=== PATIENT | female | born 1965 | race American Indian/Alaskan Native ===

== ENCOUNTER 2016-12-26 20:21 | Emergency (ER) | payer BC ==
[2016-12-26] MEDS ORDERED: TORADOL IM ONE (23:37)
--- NOTE | 2016-12-26 23:48 | Emergency Department Report ---
ED Fall HPI - General Chief Complaint: Fall Stated Complaint: FALL Time Seen by Provider: 12/26/16 23:42 Source: patient Mode of arrival: Ambulatory - History of Present Illness Initial Comments: MS VILLA SLIPPED AND FELL ON A NEWLY WAXED SURFACE WHILE AT WORK. THERE WAS NO SIGN INDICTING THAT THE FLOOR WAS SLIPPERY. SHE NOW COMPLAINS OF LEFT SHOULDER AND LEFT ELBOW PAIN. NO LOSS OF CONSCIOUSNESS. 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 denies: headache, neck pain, numbness, weakness, chest paint, shortness of breath, abdominal pain, lightheaded, vertigo, confusion - Related Data Previous Rx's Medication Instructions Recorded Last Taken Type Diazepam Tab [Valium] 2 mg PO TID PRN #10 tablet 12/27/16 Unknown Rx Ibuprofen [Motrin] 800 mg PO Q8HR PRN #20 tablet 12/27/16 Unknown Rx Allergies Allergy/AdvReac Type Severity Reaction Status Date / Time No Known Allergies Allergy Verified 12/26/16 23:37 ED Review of Systems ROS: Stated complaint: FALL Other details as noted in HPI Constitutional: denies: chills, fever Eyes: denies: eye pain, eye discharge, vision change ENT: denies: ear pain, throat pain Respiratory: denies: cough, shortness of breath, wheezing Cardiovascular: denies: chest pain, palpitations Endocrine: no symptoms reported Gastrointestinal: denies: abdominal pain, nausea, diarrhea Genitourinary: denies: urgency, dysuria, discharge Musculoskeletal: denies: back pain, joint swelling, arthralgia Skin: denies: rash, lesions Neurological: denies: headache, weakness, paresthesias Psychiatric: denies: anxiety, depression Hematological/Lymphatic: denies: easy bleeding, easy bruising ED Past Medical Hx - Past Medical History Previous Medical History?: No - Surgical History Past Surgical History?: Yes Hx Cholecystectomy: Yes Hx Appendectomy: No Additional Surgical History: x2 - Family History Family history: no significant - Social History Smoking Status: Never Smoker Substance Use Type: None - Medications Home Medications: Home Medications Medication Instructions Recorded Confirmed Last Taken Type Diazepam Tab [Valium] 2 mg PO TID PRN #10 tablet 12/27/16 Unknown Rx Ibuprofen [Motrin] 800 mg PO Q8HR PRN #20 tablet 12/27/16 Unknown Rx ED Physical Exam - General Limitations: No Limitations General appearance: alert, in no apparent distress - Head Head exam: Present: atraumatic, normocephalic, normal inspection - Eye Eye exam: Present: normal appearance. Absent: scleral icterus, conjunctival injection, periorbital swelling - Neck Neck exam: Present: normal inspection, full ROM. Absent: tenderness - Respiratory Respiratory exam: Present: normal lung sounds bilaterally. Absent: wheezes, rales, rhonchi, chest wall tenderness - Cardiovascular Cardiovascular Exam: Present: regular rate, normal rhythm, normal heart sounds - GI/Abdominal GI/Abdominal exam: Present: soft - Rectal Rectal exam: Present: deferred - Extremities Exam Extremities exam: Present: full ROM. Absent: joint swelling - Expanded Upper Extremity Exam Left General: Present: abrasion (TO LEFT ELBOW) Shoulder Exam: Present: full ROM, tenderness. Absent: swelling, abrasion, ecchymosis, deformity, crepidus, dislocation, erythema, tenderness over AC joint Upper Arm exam: Present: normal inspection, full ROM. Absent: tenderness, swelling, abrasion Elbow exam: Present: full ROM, tenderness, abrasion - Back Exam Back exam: Present: normal inspection, full ROM. Absent: tenderness, CVA tenderness (R) - Neurological Exam Neurological exam: Present: alert, oriented X3, CN II-XII intact. Absent: motor sensory deficit - Psychiatric Psychiatric exam: Present: normal affect, normal mood ED Course Vital Signs 12/26/16 12/27/16 23:29 00:09 Temperature 98.1 F Pulse Rate 75 Respiratory 18 18 Rate Blood Pressure 162/91 O2 Sat by Pulse 97 Oximetry - Reevaluation(s) Reevaluation #1: 12/27/16 02:24 GIVEN TORADOL INITIALLY BUT MUSCLE IN RIGHT SHOULDER BEGIN TO HURT. EXPLAINED TO HER AND EXAMINED HER AND REASSURED HER THAT THESE WERE TO BE EXPECTED THE MUSCLE ARE BEGINNING TO SPASM ED Medical Decision Making - Radiology Data Radiology results: report reviewed, image reviewed (LEFT ELBOW NEGATIVE FOR ACUTE PROCESS) LEFT SHOULDER AND LEFT ELBOW --NEGATIVE FOR ACUTE PROCESS - Medical Decision Making WILL DISCHARGE HER HOME 0N VALIUM AND MOTRIN SINCE THERE ARE NO FRACTURES AND HER MUSCLE ARE BEGINNING TO SPASM. SHE IS AMBULATING FREELY IN THE EMERGENCY DEPT. WITHOUT DIFFICULTY. Critical care attestation.: If time is entered above; I have spent that time in minutes in the direct care of this critically ill patient, excluding procedure time. ED Disposition Clinical Impression: Muscle spasm Elbow abrasion Qualifiers: Encounter type: initial encounter Laterality: left Qualified Code(s): S50.312A - Abrasion of left elbow, initial encounter Elbow contusion Qualifiers: Encounter type: initial encounter Laterality: left Qualified Code(s): S50.02XA - Contusion of left elbow, initial encounter Disposition: TO HOME OR SELFCARE Is pt being admited?: No Does the pt Need Aspirin: No Condition: Stable Prescriptions: Diazepam Tab [Valium] 2 mg PO TID PRN #10 tablet PRN Reason: Anxiety Ibuprofen [Motrin] 800 mg PO Q8HR PRN #20 tablet PRN Reason: Analgesia Referrals: PRIMARY CARE, [Primary Care Provider] - 3-5 Days Time of Disposition: 02:19
--- NOTE | 2016-12-27 00:31 | XRay Report ---
FINAL REPORT EXAM: XR ELBOW 3+V LT HISTORY: left elbow pain fall TECHNIQUE: Three views of the left elbow were obtained. FINDINGS: There is no evidence of fracture or dislocation. Joint effusion is not seen. IMPRESSION: Negative exam.
--- NOTE | 2016-12-27 00:34 | XRay Report ---
FINAL REPORT EXAM: XR SHOULDER 2+V LT HISTORY: left shoulder pain fall TECHNIQUE: Three views of the left shoulder were obtained. FINDINGS: There are no skeletal or soft tissue abnormalities. IMPRESSION: Within normal limits.
[2016-12-27 03:03] VITALS: BP 147/94
== END 2016-12-27 03:03 | disposition home or self-care (01) ==
LOC: ED 20:21
DX: S50.02XA Contusion of left elbow, initial encounter (principal); W18.30XA Fall on same level, unspecified, initial encounter; Y93.89 Activity, other specified; Y92.89 Other specified places as the place of occurrence of the external cause; Y99.8 Other external cause status
CPT/HCPCS: 73030; 73080; 96372; 99283; J1885